=== PATIENT | male | born 1960 | race African-American/Black ===

== ENCOUNTER 2025-02-05 12:42 | Emergency (ER) | payer OTHER ==
[2025-02-05] MEDS ORDERED: Ibuprofen 200 MG TAB ONE (12:58)
== END 2025-02-05 13:57 ==
LOC: NAV ERS 12:42 → EEVIPCON 12:42 → NAV ERS 13:57
DX: S06.0X0A Concussion without loss of consciousness, initial encounter (principal); I10 Essential (primary) hypertension; J45.909 Unspecified asthma, uncomplicated; E78.5 Hyperlipidemia, unspecified; Z79.51 Long term (current) use of inhaled steroids; Z79.899 Other long term (current) drug therapy; Z79.82 Long term (current) use of aspirin; W22.8XXA Striking against or struck by other objects, initial encounter; Y93.89 Activity, other specified; Y92.149 Unspecified place in prison as the place of occurrence of the external cause
CPT/HCPCS: 70450; 72125